=== PATIENT | female | born 1995 | race Caucasian/White ===

== ENCOUNTER 2021-06-21 21:06 | Emergency (ER) | payer OTHER ==
[2021-06-21 21:18] VITALS: BP 121/84; PULSE 97; TEMP 99.4; BMI 18.1
[2021-06-21] MEDS ORDERED: ALBUTEROL SO4 2.5/IPRATROPIUM 0.5 INH SOL 3 ML VIAL.NEB. NEB ONE ×2 (21:26→21:28)
== END 2021-06-21 21:57 | disposition home or self-care (01) ==
LOC: FER 21:06
PROC: 3E0F7GC Introduction of Other Therapeutic Substance into Respiratory Tract, Via Natural or Artificial Opening (ICD-10-PCS; principal; 2021-06-21)
DX: J06.9 Acute upper respiratory infection, unspecified (principal); R05 Cough
CPT/HCPCS: 94640; 99283-25